=== PATIENT | female | born 1945 | race Two or more races ===

== ENCOUNTER → 2017-07-10 | Outpatient (CLI) | payer MEDICARE, OTHER ==
[~2017-07-10] MED LIST: CARV6 PO; ESCI10TA PO; LOSA-30 PO; OMEP20 PO; TERB250 PO
== END | disposition home or self-care (01) ==
LOC: RADPV 10:01
PROVIDERS: ATTEND Family Medicine
DX: M16.11 Unilateral primary osteoarthritis, right hip (principal); M77.32 Calcaneal spur, left foot; M79.644 Pain in right finger(s); M17.0 Bilateral primary osteoarthritis of knee
CPT/HCPCS: 73502